=== PATIENT | male | born 2000 | race Caucasian/White ===

== ENCOUNTER 2021-01-07 06:44 | Day surgery (SDC) | payer BC, MEDICAID ==
[~2021-01-07] VITALS: Ht 193 cm; Wt 146.0 kg
[2021-01-07] MEDS ORDERED: ONE-A-DAY ESSE1 EACH PO (07:19)
[2021-01-07] MEDS ORDERED: CLARITIN 1010 MG/TAB PO (07:19)
[2021-01-07 07:20] VITALS: BP 144/89; PULSE 82; TEMP 98.3
[2021-01-07] MEDS ORDERED: GAS RELIEF125 MG PO (07:20)
[2021-01-07 11:30] VITALS: BP 154/81; PULSE 97; TEMP 97.3
--- NOTE | 2021-01-07 11:30 | NUR ---
Patient arrives to [facility] via cart, accompanied by PURCHASER and father. He is sleepy, but talking with staff. MOnitoring is applied -VSS and WNL on room air. He denies pain at this time. His mouth does not have any bleeding noted. PIV to TKO. Lights are dimmed for comfort. Patient is resting.
[2021-01-07 11:45] VITALS: BP 167/81; PULSE 88
--- NOTE | 2021-01-07 11:45 | NUR ---
Patient is awake, watching TV. Denies pain or nausea. Offered and receives orange juice and pudding.
[2021-01-07 11:49] VITALS: TEMP 98.1
[2021-01-07 12:00] VITALS: BP 151/74; PULSE 88
[2021-01-07 12:15] VITALS: BP 144/73; PULSE 89
--- NOTE | 2021-01-07 12:15 | NUR ---
VSS and WNL on room air. Tolerating PO well. Denies pain. No bleeding noted.
--- NOTE | 2021-01-07 12:35 | NUR ---
Patient has met discharge criteria. PIV is removed with catheter intact and hemostasis achieved. Discharge instructions are discussed with his father, who denies any questions and verbalizes understanding. He changes to his clothing independently. He is escorted to the exit via wheelchair by staff. He is discharged to the care of his father, who drives him home in private vehicle, at 1235.
== END 2021-01-07 12:35 | disposition home or self-care (01) ==
LOC: SDCO 06:44
DX: K02.9 Dental caries, unspecified (principal); K04.7 Periapical abscess without sinus; K05.10 Chronic gingivitis, plaque induced; F84.0 Autistic disorder; J30.2 Other seasonal allergic rhinitis; F41.8 Other specified anxiety disorders; Z20.822 Contact with and (suspected) exposure to COVID-19; Z79.899 Other long term (current) drug therapy
CPT/HCPCS: J7120